=== PATIENT | male | born 1955 | race Caucasian/White ===

== ENCOUNTER 2022-06-14 22:16 | Inpatient (IN) | payer MEDICARE, OTHER ==
[~2022-06-14] VITALS: Ht 182.9 cm; Wt 68.5 kg
[~2022-06-14 22:16] MED LIST: COREG12.5 MG PO; COREG6.25 MG PO; COUMADIN3 MG PO; COUMADIN6 MG PO; DIGITEK125 MC1 PO; FUROSEMIDE40 MG PO; PACERONE200 MG PO; SYNTHROID100 MCG PO; Z.0.COUMADIN6 MG PO; Z.0.LOVASTATIN20 MG PO; Z.0.PLAVIX75 MG PO; Z.0.SYNTHROID125 MCG PO
[2022-06-14 22:43] LABS: BASOPHILS # (AUTO) 0.1 (0.0-0.1); BASOPHILS % 1.2 % (0.0-1.0); EOSINOPHILS # (AUTO) 0.2 (0.0-0.4); EOSINOPHILS % 3.5 % (0.0-6.0); HEMATOCRIT 40.7 % (38.2-49.6); HEMOGLOBIN 13.2 g/dL (14.0-18.0); LYMPHOCYTES # (AUTO) 1.2 (1.0-3.2); LYMPHOCYTES % 19.4 % (18.0-39.1); MEAN CORPUSCULAR HEMOGLOBIN 30.4 pg (28-32); MEAN CORPUSCULAR HGB CONC 32.4 g/dL (31-35); MEAN CORPUSCULAR VOLUME 93.8 fL (81-99); MONOCYTES # (AUTO) 0.7 (0.2-0.8); MONOCYTES % 11.2 % (4.4-11.3); NEUTROPHILS # (AUTO) 3.9 (2.1-6.9); NEUTROPHILS % 64.5 % (38.7-80.0); PLATELET COUNT 204 x10e3/uL (140-360); RED BLOOD COUNT 4.34 x10e6/uL (4.3-5.7); RED CELL DISTRIBUTION WIDTH 13.6 % (11.7-14.4)
[2022-06-14 23:01] LABS: ALBUMIN 3.2 g/dL (3.5-5.0); ALBUMIN/GLOBULIN RATIO 0.8 (0.8-2.0); ANION GAP 15.5 mmol/L (8-16); CALCIUM 8.1 mg/dL (8.4-10.2); CREATININE, SERUM 1.33 mg/dL (0.72-1.25); POTASSIUM 4.5 mmol/L (3.5-5.1)
[2022-06-14 23:08] LABS: CREATINE KINASE MB 14.9 ng/mL (0-5.0)
[2022-06-15] VITALS (90 sets, daily range): BP systolic 66–121; BP diastolic 19–85
[2022-06-15] MEDS ORDERED: FUROSEMIDE INJ 10 MG/ML 2 ML VIAL IV SCH (00:45)
[2022-06-15] MEDS ORDERED: AMIODARONE HCL 150 MG/100 ML BAG IV ONE (00:45)
[2022-06-15] MEDS ORDERED: AMIODARONE 900MG 900 MG in Premix Bag 1 BAG IV SCH (00:45)
[2022-06-15] MEDS ORDERED: AMIODARONE 900MG 500 ML IV ONE (01:22)
[2022-06-15] MEDS ORDERED: Morphine 2mg Syringe 2 MG/ML SYR IV PRN (02:45)
[2022-06-15] MEDS: FUROSEMIDE INJ 10 MG/ML 4 ML VIAL IV SCH ×3 (06:08→21:04)
[2022-06-15 07:01] LABS: ANION GAP 12.3 mmol/L (8-16); CREATININE, SERUM 1.22 mg/dL (0.72-1.25); POTASSIUM 4.3 mmol/L (3.5-5.1)
[2022-06-15 07:04] LABS: INR 2.91; PROTHROMBIN TIME 32.5 seconds (11.9-14.5)
[2022-06-15 07:27] LABS: CREATINE KINASE MB 10.9 ng/mL (0-5.0)
[2022-06-15] MEDS ORDERED: ACETAMINOPHEN 325 MG TAB PO PRN (08:00)
[2022-06-15] MEDS: LEVOTHYROXINE SODIUM 50 MCG TAB PO SCH (08:37)
[2022-06-15] MEDS ORDERED: NON-FORMULARY MEDICATION (Lovastatin 20 MG) PO SCH (09:00)
[2022-06-15] MEDS ORDERED: AMIODARONE HCL 200 MG TAB PO SCH (09:00)
[2022-06-15] MEDS ORDERED: AMIODARONE 900MG 500 ML IV SCH ×2 (11:00)
[2022-06-15 15:26] LABS: CREATINE KINASE MB 9.5 ng/mL (0-5.0)
[2022-06-15] MEDS: Morphine 2mg Syringe 2 MG/ML SYR IV PRN ×2 (16:55→20:42)
[2022-06-15] MEDS: WARFARIN SOD 2 MG TAB PO SCH (17:48)
[2022-06-15] MEDS ORDERED: PRAVASTATIN 20 MG TAB PO SCH (21:00)
[2022-06-15] MEDS: ONDANSETRON HCL INJ 2MG/ML 2ML 2 MG/ML VIAL IV PRN (21:35)
[2022-06-16] VITALS (41 sets, daily range): BP systolic 90–128; BP diastolic 60–99
[2022-06-16] MEDS: METOCLOPRAMIDE HCL 10 MG/2ML VIAL IV PRN ×2 (00:05→09:21)
[2022-06-16] MEDS: Morphine 2mg Syringe 2 MG/ML SYR IV PRN ×2 (00:08→04:32)
[2022-06-16] MEDS: ONDANSETRON HCL INJ 2MG/ML 2ML 2 MG/ML VIAL IV PRN ×3 (04:32→16:48)
[2022-06-16] MEDS: LEVOTHYROXINE SODIUM 50 MCG TAB PO SCH (06:07)
[2022-06-16] MEDS: FUROSEMIDE INJ 10 MG/ML 4 ML VIAL IV SCH (06:07)
[2022-06-16 06:49] LABS: BASOPHILS % 0.4 % (0.0-1.0); HEMATOCRIT 35.4 % (38.2-49.6); HEMOGLOBIN 11.6 g/dL (14.0-18.0); LYMPHOCYTES # (AUTO) 0.5 (1.0-3.2); LYMPHOCYTES % 6.4 % (18.0-39.1); MEAN CORPUSCULAR HEMOGLOBIN 30.3 pg (28-32); MEAN CORPUSCULAR HGB CONC 32.8 g/dL (31-35); MEAN CORPUSCULAR VOLUME 92.4 fL (81-99); MONOCYTES # (AUTO) 0.6 (0.2-0.8); MONOCYTES % 7.8 % (4.4-11.3); NEUTROPHILS # (AUTO) 6.5 (2.1-6.9); PLATELET COUNT 190 x10e3/uL (140-360); RED BLOOD COUNT 3.83 x10e6/uL (4.3-5.7); RED CELL DISTRIBUTION WIDTH 13.7 % (11.7-14.4)
[2022-06-16 07:30] LABS: ALBUMIN 3.1 g/dL (3.5-5.0); ALBUMIN/GLOBULIN RATIO 0.9 (0.8-2.0); ANION GAP 15.9 mmol/L (8-16); CALCIUM 8.1 mg/dL (8.4-10.2); CREATININE, SERUM 1.75 mg/dL (0.72-1.25); MAGNESIUM 1.6 MG/DL (1.3-2.1); POTASSIUM 3.9 mmol/L (3.5-5.1)
[2022-06-16] MEDS ORDERED: FUROSEMIDE INJ 10 MG/ML 4 ML VIAL IV SCH ×2 (08:00→09:00)
[2022-06-16] MEDS: AMIODARONE HCL 200 MG TAB PO SCH ×2 (08:57→16:20)
[2022-06-16] MEDS: CARVEDILOL 3.125 MG TAB PO SCH ×2 (08:58→16:20)
[2022-06-16 10:20] LABS: INR 2.53; PROTHROMBIN TIME 29.1 seconds (11.9-14.5)
[2022-06-16] MEDS: WARFARIN SOD 2 MG TAB PO SCH (16:21)
[2022-06-16] MEDS ORDERED: MAGNESIUM SULFATE 2GM/50ML 50 ML IV ONE (16:45)
[2022-06-16] MEDS: PRAVASTATIN 20 MG TAB PO SCH (20:31)
[2022-06-16 21:42] LABS: CLARITY,URINE HAZY (CLEAR); COLOR,URINE YELLOW (YELLOW); KETONES,URINE NEGATIVE (NEGATIVE); LEUKOCYTE ESTERASE ,URINE MODERATE (NEGATIVE); NITRITE,URINE NEGATIVE (NEGATIVE); PROTEIN,URINE DIPSTICK NEGATIVE (NEGATIVE); URINE UROBILINOGEN 0.2 mg/dL (0.2 - 1)
[2022-06-16 21:54] LABS: BACTERIA,URINE MODERATE /HPF; WBC,URINE (MAN) 21-50 /HPF (0-5)
[2022-06-17] VITALS (10 sets, daily range): BP systolic 111–124; BP diastolic 70–84
[2022-06-17] MEDS: LEVOTHYROXINE SODIUM 50 MCG TAB PO SCH (06:17)
[2022-06-17] MEDS: CARVEDILOL 3.125 MG TAB PO SCH ×2 (09:23→16:39)
[2022-06-17] MEDS: AMIODARONE HCL 200 MG TAB PO SCH ×2 (09:23→16:38)
[2022-06-17 09:24] LABS: ANION GAP 16.8 mmol/L (8-16); CALCIUM 8.1 mg/dL (8.4-10.2); CREATININE, SERUM 1.57 mg/dL (0.72-1.25); POTASSIUM 3.8 mmol/L (3.5-5.1)
[2022-06-17 09:30] LABS: INR 2.42; PROTHROMBIN TIME 28.1 seconds (11.9-14.5)
[2022-06-17] MEDS: WARFARIN SOD 2 MG TAB PO SCH (16:39)
[2022-06-17] MEDS: PRAVASTATIN 20 MG TAB PO SCH (21:04)
[2022-06-18] MEDS: LEVOTHYROXINE SODIUM 50 MCG TAB PO SCH (05:02)
[2022-06-18 09:35] VITALS: BP 98/74
[2022-06-18] MEDS: CARVEDILOL 3.125 MG TAB PO SCH (09:35)
[2022-06-18] MEDS: AMIODARONE HCL 200 MG TAB PO SCH (09:36)
[2022-06-18 10:00] VITALS: BP 98/74
[2022-06-18] MEDS ORDERED: COREG3.125 MG PO (10:39)
== END 2022-06-18 13:36 | disposition home or self-care (01) | DRG 291 ==
LOC: ER 22:39 → ERHOLD 06-15 00:46 → ICU 06-15 01:45
PROVIDERS: ADMIT Internal Medicine; ATTEND Internal Medicine
PROC: 02HV33Z Insertion of Infusion Device into Superior Vena Cava, Percutaneous Approach (ICD-10-PCS; principal; 2022-06-15)
DX: I13.0 Hypertensive heart and chronic kidney disease with heart failure and stage 1 through stage 4 chronic kidney disease, or unspecified chronic kidney disease (principal); I50.23 Acute on chronic systolic (congestive) heart failure; N17.9 Acute kidney failure, unspecified; I48.91 Unspecified atrial fibrillation; N18.30 Chronic kidney disease, stage 3 unspecified; E03.9 Hypothyroidism, unspecified; R09.02 Hypoxemia; Z95.5 Presence of coronary angioplasty implant and graft; Z87.891 Personal history of nicotine dependence; Z88.5 Allergy status to narcotic agent; Z82.49 Family history of ischemic heart disease and other diseases of the circulatory system; Z95.810 Presence of automatic (implantable) cardiac defibrillator; J44.9 Chronic obstructive pulmonary disease, unspecified; I42.9 Cardiomyopathy, unspecified; Z20.822 Contact with and (suspected) exposure to COVID-19
CPT/HCPCS: 36415; 36569; 71045; 80048; 80053; 81001; 82550; 82553; 83605; 83735; 83880; 84484; 85025; 85610; 87040; 93005; 93306; 94799; 99251; 99284; J1940; J2270; J2405; J2765; J3475

== ENCOUNTER 2023-10-07 22:48 | Emergency (ER) | payer MEDICARE, OTHER ==
[~2023-10-07] VITALS: Ht 185.4 cm; Wt 68.5 kg
[~2023-10-07 22:48] MED LIST changes: +COREG3.125 MG PO
[2023-10-07 23:24] LABS: BASOPHILS # (AUTO) 0.1 (0.0-0.1); BASOPHILS % 0.9 % (0.0-1.0); EOSINOPHILS # (AUTO) 0.2 (0.0-0.4); EOSINOPHILS % 2.2 % (0.0-6.0); HEMATOCRIT 43.9 % (38.2-49.6); HEMOGLOBIN 14.9 g/dL (14.0-18.0); LYMPHOCYTES # (AUTO) 1.5 (1.0-3.2); LYMPHOCYTES % 21.4 % (18.0-39.1); MEAN CORPUSCULAR HEMOGLOBIN 31.7 pg (28-32); MEAN CORPUSCULAR HGB CONC 33.9 g/dL (31-35); MEAN CORPUSCULAR VOLUME 93.4 fL (81-99); MONOCYTES # (AUTO) 0.8 (0.2-0.8); MONOCYTES % 11.3 % (4.4-11.3); NEUTROPHILS # (AUTO) 4.4 (2.1-6.9); NEUTROPHILS % 63.9 % (38.7-80.0); PLATELET COUNT 153 x10e3/uL (140-360); RED CELL DISTRIBUTION WIDTH 13.1 % (11.7-14.4); WHITE BLOOD COUNT 6.81 x10e3/uL (4.8-10.8)
[2023-10-07] MEDS ORDERED: ACETAMINOPHEN 325 MG TAB PO ONE (23:30)
[2023-10-07] MEDS ORDERED: DEXAMETHASONE SOD PHOS 10 MG/1 ML VIAL IV ONE (23:30)
[2023-10-07 23:54] LABS: ALBUMIN 4.5 g/dL (3.5-5.0); ALBUMIN/GLOBULIN RATIO 1.5 (0.8-2.0); ANION GAP 18.9 mmol/L (8-16); CALCIUM 9.7 mg/dL (8.4-10.2); CREATININE, SERUM 1.68 mg/dL (0.72-1.25); POTASSIUM 4.9 mmol/L (3.5-5.1)
[2023-10-08 00:46] VITALS: BP 108/77; PULSE 90; RESP 20; TEMP 98.1; O2SAT 99
[2023-10-08] MEDS ORDERED: MEDROL4 M2 PO (00:47)
== END 2023-10-08 01:02 | disposition home or self-care (01) ==
LOC: ER 22:54
DX: R06.00 Dyspnea, unspecified (principal); M79.18 Myalgia, other site; I50.9 Heart failure, unspecified; Z20.822 Contact with and (suspected) exposure to COVID-19; R94.31 Abnormal electrocardiogram [ECG] [EKG]; Z95.810 Presence of automatic (implantable) cardiac defibrillator
CPT/HCPCS: 36415; 71045; 80053; 83880; 84484; 85025; 85379; 87400; 99284; J1100; U0002

== ENCOUNTER 2025-06-14 23:34 | Observation (INO) | payer MEDICARE, OTHER ==
[~2025-06-14] VITALS: Ht 185.4 cm; Wt 65.8 kg
[~2025-06-14 23:34] MED LIST changes: +MEDROL4 M2 PO
[2025-06-14 23:53] VITALS: TEMP 97.6
[2025-06-15] VITALS (8 sets, daily range): BP systolic 106–117; BP diastolic 81–86; PULSE 89–99; RESP 14–20; TEMP 97.4–97.7; O2SAT 96–100
[2025-06-15 00:06] LABS: BASOPHILS % 1.0 % (0.0-1.0); EOSINOPHILS % 2.6 % (0.0-6.0); LYMPHOCYTES % 21.8 % (18.0-39.1); MONOCYTES % 11.4 % (4.4-11.3); NEUTROPHILS % 63.0 % (38.7-80.0); RED CELL DISTRIBUTION WIDTH 13.7 % (11.7-14.4)
[2025-06-15 00:38] LABS: INR 2.22
[2025-06-15 00:48] LABS: EST GLOMERULAR FILTRATION RATE 51.0 ML/MIN (>=60)
[2025-06-15] MEDS ORDERED: ONDANSETRON HCL INJ 2MG/ML 2ML 2 MG/ML VIAL IV PRN (02:00)
[2025-06-15] MEDS: ACETAMINOPHEN 325 MG TAB PO ONE (03:35)
[2025-06-15] MEDS ORDERED: SPIRONOLACTONE25 MG PO (10:56)
[2025-06-15] MEDS ORDERED: WARFARIN SODIUM3 MG PO (10:56)
[2025-06-15] MEDS ORDERED: LEVOTHYROXINE75 MCG PO (10:56)
[2025-06-15] MEDS ORDERED: LOSARTAN POTASS50 MG PO (10:56)
[2025-06-15] MEDS ORDERED: CIPROFLOXACIN250 MG PO (10:56)
[2025-06-15] MEDS ORDERED: ULTRAM 50MG50 MG PO (10:56)
[2025-06-15] MEDS ORDERED: ATORVASTATIN CA40 MG PO (10:56)
[2025-06-15] MEDS ORDERED: GABAPENTIN300 MG PO (10:56)
== END 2025-06-15 13:07 | disposition home or self-care (01) ==
LOC: ER 23:41 → ERHOLD 06-15 01:57 → MED/SURG2 06-15 04:17
PROVIDERS: ADMIT Internal Medicine; ATTEND Internal Medicine
DX: R00.2 Palpitations (principal); I13.0 Hypertensive heart and chronic kidney disease with heart failure and stage 1 through stage 4 chronic kidney disease, or unspecified chronic kidney disease; N18.30 Chronic kidney disease, stage 3 unspecified; I50.22 Chronic systolic (congestive) heart failure; I25.10 Atherosclerotic heart disease of native coronary artery without angina pectoris; E03.9 Hypothyroidism, unspecified; I48.91 Unspecified atrial fibrillation; Z79.01 Long term (current) use of anticoagulants; I73.9 Peripheral vascular disease, unspecified; Z95.810 Presence of automatic (implantable) cardiac defibrillator
CPT/HCPCS: 36415; 71045; 80053; 82550; 83880; 84484; 85025; 85610; 85730; 94799; 99284; G0378